=== PATIENT | female | born 2005 | race Caucasian/White ===

== ENCOUNTER 2024-07-31 06:37 | Outpatient (REF) | payer OTHER, SELFPAY ==
--- NOTE | ~2024-07-31 | US_ITS ---
EXAMINATION: US PELVIS CLINICAL INFORMATION: Pelvic pain and IUD check COMPARISON: None available. TECHNIQUE: Ultrasound of the pelvis is performed using both transabdominal and transvaginal transducers along with Doppler. Transvaginal imaging is performed due to inadequate visualization transabdominally. FINDINGS: Uterus: The uterus is anteverted and measures 6.5 x 3.0 x 4.5 cm. The double wall endometrial thickness is 2.3 mm. The IUD is seen properly positioned in the endometrial canal. The uterus is smooth in contour and has normal myometrial echogenicity. No visible fibroid. Adnexa: Both ovaries are visualized. There is normal color flow to the adnexa. There is no ovarian torsion. There is no pelvic ascites or fluid collection. Right ovary measures 2.6 x 2.2 x 2.7 cm. Left ovary measures 1.3 x 2.5 x 1.5 cm. US/US pelvic and transvaginal IMPRESSION: Normal exam. The IUD is seen properly positioned in the endometrial canal. Electronically signed by: Andres Wyatt MD 07/31/2024 03:47 PM EDT
== END 2024-07-31 06:38 | disposition home or self-care (01) ==
LOC: HO.UMASIMG 06:37
PROVIDERS: Visit Provider Family Medicine
DX: R10.2 Pelvic and perineal pain (principal)
CPT/HCPCS: 76830; 76856

== ENCOUNTER 2024-12-25 06:36 | Outpatient (REF) | payer OTHER, SELFPAY ==
--- NOTE | ~2024-12-25 | US_ITS ---
EXAMINATION: US PELVIS TRANSABDOMINAL AND TRANSVAGINAL HISTORY: PELVIC AND PERINEAL PAIN COMPARISON: Comparison is made with the prior examination dated 07/31/2024. TECHNIQUE: Transabdominal and endovaginal real-time 2D king-scale ultrasound was performed. Color Doppler was also performed. FINDINGS: Uterus: The uterus is normal in size, measuring 6.9 x 3.1 x 4.1 cm. Myometrium has a normal echotexture. No fibroids are identified. Endometrium: The endometrial stripe measures 2 mm in thickness. A normally positioned IUD is noted in the endometrial canal. Right ovary: The right ovary measures 2.4 x 1.5 x 2.3 cm. The right ovary is normal in size and echotexture. Left ovary: The left ovary measures 3.0 x 1.6 x 1.8 cm. The left ovary is normal in size and echotexture. There is a dominant 1.6 x 1.1 x 1.2 cm follicle. Color Doppler analysis of the bilateral ovarian arteries and veins is normal. Pelvic fluid: none. US/US pelvic and transvaginal IMPRESSION: Unremarkable pelvic ultrasound. Normal in position IUD in the endometrial cavity. Electronically signed by: Kyler Mills MD 12/25/2024 02:57 PM EDT
--- OUTSIDE RECORDS SUMMARY | 2024-12-25 06:39 | XMS_ITS | Clinical Summary ---
Author Organization [facility] Address [address] [place] [address] Care Team Providers Care Environmental Health And Safety Manager Name Role Phone Sherrie Wasserman Primary Care Provider [phone] Medications * This document contains information received from the source organization and may not represent a complete record from that organization. FLUoxetine (PROzac) 10 mg capsule 10/05/2021 Active Social History Tobacco Use Types Packs/Day Years Used Date Smoking Tobacco: Never Assessed Comments Unknown Sex and Gender Information Value Date Recorded Sex Assigned at Not on file Legal Sex Female 1:05 PM EST Gender Identity Not on file Sexual Orientation Not on file Plan of Treatment Health Maintenance Due Date Last Done Comments HIV Screening 2003 Pap Smear 2003 1 Week [facility] 2003 1 Month [facility] 2003 2 Month [facility] 2003 4 Month [facility] 2003 6 Month [facility] 2003 9 Month [facility] 2003 12 Month [facility] 02/26/2004 MMR Vaccines (1 of 1 - Standard series) 02/26/2004 15 Month [facility] 05/14/2004 18 Month [facility] 08/12/2004 24 Month [facility] 02[facility]08/2005 30 Month [facility] 06/14/2005 3 to 21 Year [facility] 2006 Well Child Check 2006 DTaP,Tdap,and Td Vaccines (1 - Tdap) 2010 Varicella Vaccines (1 of 2 - 13+ 2-dose series) 02/26/2016 HPV Vaccines (1 - 3-dose series) 2018 Hepatitis B Vaccines (1 of 3 - 19+ 3-dose series) 2022 COVID-19 Vaccine (2023-2 5 season) 2024 09/29/2021, 02/26/2021, 02/03/2021 Influenza Vaccine (#1) 2024 , 08/07/2018, 08/01/2016 Alcohol/Substance Use Screening 10/15/2024 RSV Vaccine (60+ years old a nd patients) (1 - 1-dose 75+ series) 2078 Meningococcal Vaccine Aged Out No arjun aniceto eligible based on patient's age to complete this topic Pneumococcal Vaccine: Pediatric (0-5 Years) and At-Risk Patients (6-50 Years) Aged Out No longer eligible based on patient's age to complete this topic Insurance [facility] Care Teams Environmental Health And Safety Manager Relationship Specialty Start Date End Date Sherrie Wasserman [address] [place] [id number] PCP - General Internal Medicine 10/19/21
== END 2024-12-25 06:37 | disposition home or self-care (01) ==
LOC: HO.UMASIMG 06:36
PROVIDERS: Visit Provider Family Medicine
DX: R10.2 Pelvic and perineal pain (principal)
CPT/HCPCS: 76830; 76856

== ENCOUNTER → 2024-12-25 14:00 | Outpatient (BNV) | payer OTHER, SELFPAY | PROVIDERS: Visit Provider Radiology Diagnostic Radiology | DX: R10.2 Pelvic and perineal pain (principal) | CPT/HCPCS: 76830; 76856 ==